=== PATIENT | female | born 1970 | race Caucasian/White ===

== ENCOUNTER 2019-04-10 13:40 | Emergency (ER) | payer OTHER, SELFPAY ==
[2019-04-10 13:49] VITALS: BP 142/78; PULSE 72; RESP 18; TEMP 36.6; O2SAT 100
--- NOTE | 2019-04-10 15:56 | W.ED.GENAD ---
Discharge Plan Disposition Patient Disposition: HOME Condition: Good Discharge Details Chief Complaint: Laceration Clinical Impression: Avulsion of skin Primary Care Provider: Cuca Casarez ED Provider: Flavio Reyes Home Meds and New Rx's Prescriptions: No Action sucralfate [Carafate] 1 gram Tablet 1 g PO PRN PRNRF: 0 lisinopril 5 mg Tablet 5 mg PO DAILY RF: 0 acetaminophen 325 MG tablet 650 mg PO TID PRNRF: 0 ibuprofen 200 MG tablet 600 mg PO Q6H PRN PRNRF: 0 Esomeprazole Magnesium [Nexium 24Hr] 20 MG Capsule.Dr 20 mg PO DAILY RF: 0 ondansetron 4 MG tablet,disintegrating 4 mg PO Q8H PRN (Reason: Nausea / Vomiting) Qty: 8 RF: 0 Discharge Instructions Instructions: Skin Avulsion (ED) Additional Instructions: You have avulsed a significant amount of your skin of your fingertip. Please change your bandages every day. Please put a nonadhesive gauze on the injury site. Please then wrapped this with normal gauze, and then cover it with co-ban dressing. If you notice any discharge, drainage, redness, fever, chills or worsening pain please return immediately. Please take Tylenol and Motrin as needed for pain. If you notice any worsening of your symptoms, or any new symptoms such as vomiting, diarrhea, fever, chills, shortness of breath, chest pain, numbness, weakness, or fainting , please return immediately to the emergency department for reevaluation. Please follow up with your primary care provider as soon as possible for reassessment and reevaluation. As always, it was a pleasure participating in your medical care today. Referrals: Cuca Casarez [Primary Care Provider] - Discharge Data Discharge Date/Time-TO BE ENTERED AT DEPARTURE: 04/10/19 16:12 Medical Decision Making This is a pleasant 48-year-old female who presents for avulsing the distal tip of her left index finger on her nondominant hand. Tetanus is updated in the last 10 years. Exam demonstrates a relatively superficial distal tip avulsion, which does include the distal lateral tip of the nail. The area was blocked with 5 cc of lidocaine without epinephrine. A tourniquet was applied, vigorous irrigation and scrubbing was performed on the fingertip. No evidence of bony involvement. No evidence of tendon disruption. Patient is able to still flex and extend her fingertip well without any difficulty. Multiple layers of Dermabond were applied to the fingertip, tourniquet was removed and excellent hemostasis was achieved. The fingertip was pink with brisk capillary refill upon discharge. The area was bandaged, patient will be scheduled for close follow-up with her PCP for wound reassessment. We discussed dressing changes, the importance of close follow-up, and red flags for which to return. With no bone involvement, or tendon disruption I do not see indication for antibiotic use at this time. I have extensively reviewed the treatment plan and discharge instructions with the patient and their family. I have addressed all patient concerns at this time. The patient and family was made aware of what symptoms to monitor for that would warrant a return to the emergency department. Discussed the plan with the patient and family, they demonstrate verbal understanding and agreement with our assessment and plan at this time. HPI General Date/Time Provider Initiated Documentation: 04/10/19 15:56. HPI Narrative: This is a pleasant 48-year-old female with no significant past medical history whose tetanus was updated in the last 10 years who presents today for evaluation of laceration to her index finger. The distal tip is cut off by a sharp blade while she was in the kitchen.Pressure immediately came for further evaluation. She is right-hand clinic. Aside for the distal laceration and the pain associated with it she denies any other associated numbness tingling she denies any pain moving her finger. She denies any other complaints or modifying factors. She denies any IV or illicit drug use, recent surgeries or pertinent family history. Related Data Home Medications Medication Instructions Recorded Confirmed Esomeprazole Magnesium [Nexium 20 mg PO DAILY 09/17/17 04/10/19 24Hr] acetaminophen 650 mg PO TID PRN 09/17/17 04/10/19 ibuprofen 600 mg PO Q6H PRN PRN 09/17/17 04/10/19 ondansetron 4 mg PO Q8H PRN #8 tabef 09/17/17 04/10/19 lisinopril 5 mg PO DAILY 04/10/19 04/10/19 sucralfate [Carafate] 1 g PO PRN PRN 04/10/19 04/10/19 Previous Rx's Medication Instructions Recorded ondansetron 4 mg PO Q8H PRN #8 tabef 09/17/17 Allergies Allergy/AdvReac Type Severity Reaction Status Date / Time bee venom protein (honey bee) Allergy Severe Anaphylaxsi Unverified 04/10/19 13:53 s Penicillins AdvReac Unknown Unverified 04/10/19 13:53 General Stated Complaint: Laceration JED: 3 Review of Systems Review of Systems All systems reviewed & are unremarkable except as noted in HPI and below PFSH Social History Smoking/Tobacco Use Status: Former Tobacco Use Alcohol Intake: current Alcohol Intake frequency: a few times a month Substance use type: does not use Do you feel safe at home: Yes Do you feel safe in your relationship?: Yes Exam Narrative Exam Narrative: 1.Const: Well-nourished, Well-developed, appearing stated age 2.Eyes: PERRL, no conjunctival injection, and symmetrical lids. 3.ENT: Atraumatic external nose and ears. Moist MM. Neck: Symmetric, trachea midline, No thyromegaly. 4.CVS: +S1/S2, No murmurs or gallops. Peripheral pulses 2+ and equal in all extremities. Brisk capillary refill in all extremities. 5.RESP: Unlabored respiratory effort. Clear to auscultation bilaterally. No wheezes rales or rhonchi 6.GI: Soft, Nontender/Nondistended, No hepatosplenomegaly. No guarding or rebound. 7.MSK: Normocephalic,No cyanosis or clubbing, Normal movement of all extremities. Patient demonstrates an avulsion of the distal tip of the index finger on the left hand. A portion of the nail is also been cut off. There is no evidence of deep penetration or bony presence. No evidence of tendon involvement. The avulsion appears to be the superficial skin and edge of the distal nail bed. Mild active bleeding. Normal flexion and extension of the distal tip. 8.Skin: Warm, Dry. 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 Sensation grossly intact, no focal neurologic deficits. 10.Psych: (AAO) x3. Appropriate mood and affect Course Vital Signs Temperature 36.6 C 04/10/19 13:49 Pulse 72 04/10/19 13:49 Respiratory Rate 18 04/10/19 13:49 Blood Pressure 142/78 H 04/10/19 13:49 Pulse Oximetry 100 04/10/19 13:49 Temperature 36.6 C 04/10/19 13:49 Pulse 72 04/10/19 13:49 Respiratory Rate 18 04/10/19 13:49 Respiratory Effort Non-Labored 04/10/19 13:54 Blood Pressure 142/78 H 04/10/19 13:49 Blood Pressure Position Sitting 04/10/19 13:49 Pulse Oximetry 100 04/10/19 13:49 Oxygen Delivery Method Room Air 04/10/19 13:49 Oxygen Flow Rate 0 04/10/19 13:49 Pain Level 5 04/10/19 13:49
[2019-04-10 16:15] VITALS: BP 142/78; PULSE 72; RESP 18; TEMP 36.6; O2SAT 100
== END 2019-04-10 16:12 | disposition home or self-care (01) ==
PROVIDERS: Emergency Provider Student in an Organized Health Care Education/Training Program; PCP Registered Nurse
DX: S61.311A Laceration without foreign body of left index finger with damage to nail, initial encounter (principal); W26.0XXA Contact with knife, initial encounter
CPT/HCPCS: 12001

== ENCOUNTER 2024-11-10 12:55 | Outpatient (CLI) | payer MEDICAID, SELFPAY ==
--- NOTE | 2024-11-10 12:57 | PDOC.PAIN ---
Date of service: 11/10/24 Time of Service: 13:41 Pain Managment Procedure Note Procedure Note Procedure Note: ?Sacroiliac Joint Steroid Injection ? Location: ? ? Left SI joint ? Pre-procedure Diagnosis: Sacroiliitis, not elsewhere classified - M46.1 ? Post-procedure Diagnosis:? The same as above ? Sedation:? NONE ? Medication: Depo-Medrol 40 mg, bupivacaine 0.5% 1 mL, Omnipaque 0.25 mL per joint ? Estimated blood loss:? less than 2 cc ? Surgeon:? Po Davis MD ? COMMENT: THIS WILL BE BOTH DIAGNOSTIC AND THERAPEUTIC ? Procedure Detail:? The procedure and potential risks were explained to the patient and informed written consent was obtained. The patient was escorted to the procedure room and placed in the prone position. Pillows were utilized for proper positioning and comfort. Time out was performed in the procedure room with nursing staff confirming the patient's identity, procedure to be performed, allergies, and any blood thinning or anti-platelet medications. The patient's lumbosacral area was prepped with ChloraPrep and draped in a sterile fashion. Sterile technique was maintained throughout the procedure.? Sterile gloves were used, a face mask was worn, and new single dose vials of all medications were used with the top being swabbed with alcohol and given time to dry prior to withdrawal of medication. Lidocaine 1% was used to anesthetize the skin. With fluoroscopic guidance, a 22-gauge 3.5 spinal needle was advanced into the posteroinferior aspect of the Left SI joint . Confirmation of intra-articular position of the needle tip was obtained with injection of 0.25cc of Omnipaque 240 contrast which showed appropriate spread within the joint.? Following negative aspiration, 40mg of methylprednisolone mixed with 1 mL of bupivacaine 0.5% was injected.? The needle was gently removed. ?The patient tolerated the procedure well and was transported to the recovery area for observation and discharge instructions.? Permanent images saved and recorded. Plan:? Follow up prn. PAIN PRE PROCEDURE 10 POST PROCEDURE 02/20 COMMENT: 30 % BETTER AFTER INJECTION. Consider facet injections and left L2-3 transforaminal injection and assess for vertebrogenic back pain once everything else has been ruled out and possible basivertebral nerve ablation. Left Hip xray?
[2024-11-10 13:03] VITALS: BP 133/72; PULSE 61; RESP 20; TEMP 36.6; O2SAT 98
[2024-11-10 13:27] VITALS: PULSE 77; O2SAT 97
[2024-11-10 13:31] VITALS: PULSE 77; O2SAT 100
--- NOTE | 2024-11-10 13:41 | DI.RAD_ITS ---
Exam(s) XR PAIN CLINIC SACRIOILIAC 2V EXAM: XR PAIN CLINIC SACRIOILIAC 2V CLINICAL HISTORY: DX: Sacroiliac Dysfunction TECHNIQUE: 2D and realtime digital imaging was performed. Radiologist not present. CONTRAST MATERIAL: None. COMPARISON: No exams were available for comparison FINDINGS: Fluoroscopy was provided for pain management therapy. Therapeutic left sacroiliac joint injection Please refer to procedure report or details. Radiation Exposure Index: Ka,r=7.04 mGy IMPRESSION: As above. RADIATION DOSE DELIVERED:
[2024-11-10] MEDS: methylPREDNISolone ACETATE 80 MG/ML VIAL IJ (13:44)
[2024-11-10] MEDS: Omnipaque 240 MG/ML 50 ML BTL IJ (13:44)
[2024-11-10] MEDS: Bupivacaine 0.5% Pres-Free 10 ML VIAL IJ (13:44)
[2024-11-10] MEDS: Nerve Block Tray 1 EACH MC (13:44)
== END 2024-11-10 12:56 | disposition home or self-care (01) ==
PROVIDERS: PCP Registered Nurse; Visit Provider Anesthesiology Pain Medicine
DX: M46.1 Sacroiliitis, not elsewhere classified (principal)
CPT/HCPCS: 00123; 27096; 72200; J0665; J1010; Q9967

== ENCOUNTER 2024-12-18 15:50 | Outpatient (REF) | payer MEDICAID, SELFPAY ==
[2024-12-19 00:24] LABS: Campylobacter PCR Negative (Negative); Salmonella PCR Negative (Negative); Shiga Toxin PCR Negative (Negative); Shigella/Enteroinvasive Ecoli Negative (Negative)
[2024-12-21 22:29] LABS: Calprotectin <50.0 mcg/g
[2024-12-22 13:53] LABS: Helicobacter pylori Ag, Feces Negative (Negative)
== END 2024-12-18 15:51 | disposition home or self-care (01) ==
LOC: LBN 15:50
PROVIDERS: PCP Registered Nurse; Visit Provider Registered Nurse
DX: K29.70 Gastritis, unspecified, without bleeding (principal); R11.2 Nausea with vomiting, unspecified; R63.4 Abnormal weight loss
CPT/HCPCS: 87338; 87493; 87505; 83993; 87177

== ENCOUNTER 2024-12-22 01:52 | Outpatient (CLI) | payer MEDICAID, SELFPAY ==
[2024-12-22] MEDS: Barium Sulfate 2% W/V-Berry Smoothie 450 ML BTL PO ×2 (14:41→14:42)
[2024-12-22] MEDS: Normal Saline - Diluent 50 ML VIAL IJ (14:42)
[2024-12-22] MEDS: Omnipaque 350 MG/ML 100 ML BTL IJ (14:50)
--- NOTE | 2024-12-22 15:38 | DI.CT_ITS ---
Exam(s) CT ABDOMEN PELVIS W EXAM: CT ABDOMEN PELVIS W CLINICAL HISTORY: Gastritis wo bleeding, K29.70; Nausea w/vomiting, R11.2; Abnl wt loss,R63.4. TECHNIQUE: Imaging Protocol: Axial computed tomography images with coronal and sagittal reformatted images were created and reviewed CONTRAST MATERIAL: Intravenous: Omnipaque-350 100cc Oral: Yes. Oral contrast was also administered for bowel opacification. COMPARISON: No exams were available for comparison FINDINGS: VISUALIZED LUNG BASES: No nodules nor pleural effusions evident. ABDOMEN: There is no ascites. LIVER: There are no focal hepatic lesions evident. No dilated intrahepatic ducts. GALLBLADDER/BILIARY: The gallbladder surgically absent. CBD is not dilated. PANCREAS: No evidence of pancreatic mass nor dilatation of the pancreatic duct. SPLEEN: Spleen is not enlarged. No obvious intrasplenic lesions. Splenic and portal veins are paten t. ADRENALS: There are no significant adrenal masses. KIDNEYS:No cysts evident. No solid renal masses. No calculi nor hydronephrosis.. ABDOMINAL AORTA: Abdominal aorta is not enlarged. LYMPH NODES:There is no retroperitoneal nor paraaortic adenopathy. ABDOMINAL WALL: No evidence of significant anterior abdominal wall nor inguinal hernia. GI: The oral contrast has not yet reached the colon by the time of image acquisition. This may be re lated to the fact that there is abundant fecal material throughout the colon consistent with probable constipation. There is no colitis pattern. No diverticulosis evident. Small bowel loop diameters are upper normal. PELVIS: GI: The cecum is low-lying sitting on top of the urinary bladder making visualization of the appendix difficult. However, there is no evidence of obvious appendicitis.There is no evidence of significan t sigmoid diverticular disease. LYMPH NODES: There is no intrapelvic nor inguinal adenopathy. REPRODUCTIVE: The uterus is surgically absent. There are no abnormal adnexal masses nor free fluid i n the pelvis. URINARY BLADDER: No calculi nor obvious masses evident OSSEOUS: No fractures and no significant osseous lesions. Chronic disc space narrowing at L1-2 and L2-3 levels and milder disc space narrowing at L3-4. L4-5 a nd L5-S1 levels exhibit normal disc height. IMPRESSION: 1. There is abundant fecal material noted throughout the length of the colon consistent with probable constipation. There is no significant diverticular disease in the colon. No colitis pattern. 2. Prior cholecystectomy. The biliary tree is not significantly dilated. 3. Appendix is not seen and possibly surgically absent. There is no evidence of appendicitis, divert iculitis, nor other inflammatory process in the abdomen and pelvis. 4. Previous hysterectomy. No abnormal adnexal masses nor free fluid. RADIATION DOSE DELIVERED: 336.88mGy.cm Total DLP DATA REPOSITORY: All CT scans at this facility are submitted to the National Radiology Data Registry (NRDR) Dose Index Registry (DIR) with the [employer] (A[employer]). RADIATION OPTIMIZATION: All CT scans at this facility use at least one of these dose optimization te chniques: automated exposure control; mA and/or kV adjustment per patient size (includes targeted exa ms where dose is matched to clinical indication); or iterative reconstruction.
== END 2024-12-22 02:12 ==
PROVIDERS: PCP Registered Nurse; Visit Provider Registered Nurse
DX: K29.70 Gastritis, unspecified, without bleeding (principal); R11.2 Nausea with vomiting, unspecified; R63.4 Abnormal weight loss
CPT/HCPCS: 74177; J3490

== ENCOUNTER 2025-01-10 19:10 | Emergency (ER) | payer MEDICAID, SELFPAY ==
[2025-01-10 19:13] VITALS: BP 120/79; PULSE 79; RESP 20; TEMP 36.6; O2SAT 96
[2025-01-10 19:17] VITALS: BP 120/79; PULSE 79; RESP 20; TEMP 36.6; O2SAT 96
--- NOTE | 2025-01-10 19:32 | ED.GENADUL_ITS ---
Discharge Plan Disposition Patient Disposition: Home Condition: Stable Discharge Details Clinical Impression: Migraine Primary Care Provider: Cuca Casarez ED Provider: Mikel Leong Home Meds and New Rx's Prescriptions: New sumatriptan succinate 50 mg tablet See Rx Instructions .ROUTE .COMPLEX Qty: 30 0RF Rx Instructions: take 1 tab at onset of headache; if no relief may repeat 1 tab after at least 2 hrs; max = 4 tabs/24 hr ondansetron 4 mg tablet,disintegrating 4 mg PO Q8H PRN (Reason: nausea and vomiting) Qty: 30 0RF Continued hydrocortisone acetate [Anusol-HC] 25 mg suppository 25 mg [place] TID diclofenac sodium 1 % gel 2 g topical QID Rx Instructions: apply to single elbow, wrist or hand; for hand includes palm/fingers/back of hand epinephrine 0.3 mg/0.3 mL auto-injector 0.3 mg IM ONCE PRN Rx Instructions: as a single dose; may repeat once lidocaine 5 % adhesive patch,medicated 2 patch topical DAILY Rx Instructions: leave on most painful area for up to 12 hrs estradiol [Vagifem] 10 mcg tablet 10 mcg vaginal DAILY zolpidem 5 mg tablet 5 mg PO QHS PRN Rx Instructions: may repeat once if no response in 30-60 minutes sucralfate [Carafate] 1 gram Tablet 1 g PO PRN PRN lisinopril 5 mg Tablet 5 mg PO DAILY acetaminophen 325 MG tablet 650 mg PO TID PRN ibuprofen 200 MG tablet 600 mg PO Q6H PRN PRN Esomeprazole Magnesium [Nexium 24Hr] 20 MG Capsule.Dr 20 mg PO DAILY ondansetron 4 MG tablet,disintegrating 4 mg PO Q8H PRN (Reason: Nausea / Vomiting) Qty: 8 0RF Discharge Instructions Additional Instructions: Follow-up with your primary care provider especially if not improving within a week. He can take 1000 mg of acetaminophen and 600 mg of ibuprofen every 6 hours as needed. If you feel more ill, have new symptoms such as high fevers or persistent vomiting return to the emergency department for reevaluation HPI General Mode of arrival: ambulatory . Date/Time Provider Initiated Documentation: 01/10/25 19:11 . Limitations to Documentation: no limitations . Information obtained by: patient . History of Present Illness 54 year old F presents to the emergency department with the chief complaint of headache, described as moderate, Patient started experiencing this day(s) (11) and it has been constant. No relieving factors improve symptom(s), No exacerbating factors reported . Patient notes denies chest pain, fever/chills and shortness of breath. Related Data Home Medications ?Medication ?Instructions ?Recorded ?Confirmed Esomeprazole Magnesium [Nexium 20 mg PO DAILY 09/17/17 01/10/25 24Hr] acetaminophen 325 mg tablet 650 mg PO TID PRN 09/17/17 01/10/25 ibuprofen 200 mg tablet 600 mg PO Q6H PRN PRN 09/17/17 01/10/25 ondansetron 4 mg disintegrating 4 mg PO Q8H PRN Nausea / Vomiting 09/17/17 01/10/25 tablet ##8 lisinopril 5 mg tablet 5 mg PO DAILY 04/10/19 01/10/25 sucralfate 1 gram tablet (Carafate) 1 g PO PRN PRN 04/10/19 01/10/25 diclofenac sodium 1 % topical gel 2 g topical QID 10/23/24 01/10/25 epinephrine 0.3 mg/0.3 mL 0.3 mg IM ONCE PRN 10/23/24 01/10/25 injection, auto-injector estradiol 10 mcg vaginal tablet 10 mcg vaginal DAILY 10/23/24 01/10/25 (Vagifem) hydrocortisone acetate 25 mg 25 mg [place] TID 10/23/24 01/10/25 rectal suppository (Anusol-HC) lidocaine 5 % topical patch 2 patch topical DAILY 10/23/24 01/10/25 zolpidem 5 mg tablet 5 mg PO QHS PRN 10/23/24 01/10/25 ondansetron 4 mg disintegrating 4 mg PO Q8H PRN nausea and 01/10/25 tablet vomiting #30 tabs sumatriptan succinate 50 mg tablet See Rx Instructions PO .COMPLEX 01/10/25 #30 tabs Previous Rx's ?Medication ?Instructions ?Recorded ondansetron 4 mg disintegrating 4 mg PO Q8H PRN Nausea / Vomiting 09/17/17 tablet ##8 ondansetron 4 mg disintegrating 4 mg PO Q8H PRN nausea and 01/10/25 tablet vomiting #30 tabs sumatriptan succinate 50 mg tablet See Rx Instructions PO .COMPLEX 01/10/25 #30 tabs Allergies Allergy/AdvReac Type Severity Reaction Status Date / Time bee venom protein (honey bee) Allergy Severe Anaphylaxsi Unverified 01/10/25 19:26 s trazodone Allergy Severe Anaphylaxis Unverified 01/10/25 19:26 Penicillins AdvReac Unknown Anaphylaxis Unverified 01/10/25 19:26 General Stated Complaint: Headache JED: 3 Review of Systems All systems reviewed & are unremarkable except as noted in HPI and below Constitutional Constitutional: Denies chills, Denies fever(s), Reports headache(s) and Denies weakness Eyes Eyes: Denies loss of vision ENT Ears, Nose, Mouth, and Throat: Reports headache(s) Cardiovascular Cardiovascular: Denies chest pain and Denies dyspnea Respiratory Respiratory: Denies cough and Denies dyspnea Gastrointestinal Gastrointestinal: Denies abdominal pain, Denies nausea and Denies vomiting Neurologic Neurologic: Reports headache(s), Denies loss of vision and Denies weakness Exam Const General: no acute distress Orientation: alert HENMA Head: normal to inspection Ears: external ears normal and TM's normal bilaterally General nose exam: external nose normal Mouth: moist mucous membranes Eyes General: appearance normal, both eyes and all related structures Neck Neck: normal visual inspection, full ROM, no lymphadenopathy and no meningeal signs Resp Effort & Inspection: normal respiratory effort and able to speak in complete sentences Cardio Rate: regular rate Skin General skin exam: no rashes or lesions noted Neuro General: patient alert and patient oriented x3 Extrem General: normal to inspection Psych Mental Status: mental status grossly normal Course Vital Signs Vital signs: Vital Signs Temperature 36.6 C 01/10/25 19:13 Pulse 79 01/10/25 19:13 Respiratory Rate 20 01/10/25 19:13 Blood Pressure 120/79 01/10/25 19:13 Pulse Oximetry 96 01/10/25 19:13 Temperature 36.6 C 01/10/25 19:17 Pulse 79 01/10/25 19:17 Respiratory Rate 20 01/10/25 19:17 Blood Pressure 120/79 01/10/25 19:17 Blood Pressure Position Sitting 01/10/25 19:17 Pulse Oximetry 96 01/10/25 19:17 Oxygen Delivery Method Room Air 01/10/25 19:17 Oxygen Flow Rate 0 01/10/25 19:17 Pain Level 10 01/10/25 19:26 Medical Decision Making 34-year-old female comes in with 11 days of superior head pain. Denies any falls or trauma. Denies any fevers or neck stiffness. Has had nausea without vomiting. She was at [facility] and had a CT and CTA done earlier today which was negative, also had labs which showed a reassuring sed rate and CRP. She has no temporal artery tenderness, clear speech, no focal neurological deficits. There is no facial swelling, pupils are equal and reactive to light. I suspect migraine given she just had a CT and CTA that was negative and I do not feel repeat imaging at this current time is indicated. 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 Will treat her symptoms with droperidol, magnesium and sumatriptan and reassess. She was given Compazine and steroids at [facility] per the patient with minimal change in her symptoms. Patient feels significantly better and has no pain and still has reassuring exam. Suspect migraine, she will follow-up with her PCP if not feeling and return precautions given Differential Diagnosis Differential Diagnosis: Tension headache, status migrainosus Quality:SDOH Health Related Social Needs: No Data to Display PFSH All Active Problems (Updated 01/10/25 @ 20:45 by Mikel Leong MD) Migraine (Chronic) Lumbar spondylosis (Acute) Vertebrogenic low back pain (Acute) Tear of gluteus minimus tendon (Acute) Mechanical low back pain (Acute) Sacroiliac joint dysfunction of left side (Acute) Medical History (Updated 01/10/25 @ 20:45 by Mikel Leong MD) Screening mammogram for breast cancer Vaginal wall cyst excision 03/01/23 Spinal stenosis, lumbar region with neurogenic claudication Post-menopausal atrophic vaginitis Menopause present Menopausal symptom Left hip pain Labral tear of left hip joint Itchy eyes Iron deficiency anemia Hypertensive disorder Insomnia Hypermobility of joint GERD (gastroesophageal reflux disease) Fibromyalgia Chronic low back pain with bilateral sciatica Anemia Acute stress disorder Surgical History S/P anal fissurectomy Hx of cholecystectomy H/O: hysterectomy Family History Mother Cervical cancer Sister Cervical cancer Diabetes Maternal Grandmother Heart disease Diabetes Maternal Grandfather Heart disease Heart attack Social History Smoking/Tobacco Use Status: Former Tobacco Use Smoking risk assessment performed?: Yes Alcohol Intake: current Alcohol Intake frequency: a few times a month Substance use type: does not use Do you feel safe at home: Yes Do you feel safe in your relationship?: Yes PAWSS Have you Been Recently Intoxicated or Drunk Within the Last 30 days?: No Have you Ever Experienced Previous Episodes of Alcohol Withdrawal?: No Have you ever Experienced Withdrawal Seizures?: No Have you ever Experienced Delirium Tremens(DT)s?: No Have you ever undergone Alcohol Rehabilitation Treatment (i.e, inpt ot outpatient treatment programs)?: No Have you ever Experienced Blackouts?: No Have you ever Combined Alcohol with other Downers within the last 90 days?: No Have you ever Combined Alcohol with any other Substance of Abuse during the last 90 days?: No Positive Blood Alcohol level on Presentation? [PCS.BAL]: No Evidence of Increased Autonomic Activity (i.e. HR>120, tremor, sweating, agitation, nausea)?: No Result: 0
[2025-01-10] MEDS: MAGNESIUM SULFATE 1 GM/100 ML BAG IV_INF (19:49)
[2025-01-10] MEDS: Normal Saline 1,000 ML 1000 ML IV (19:55)
[2025-01-10] MEDS: SUMAtriptan 6 MG/0.5 ML VIAL SC (19:56)
[2025-01-10] MEDS: Droperidol 5 MG/2 ML VIAL 2.5 MG IVP (19:57)
[2025-01-10] MEDS: Ondansetron O.D.T. 4 MG TABEF, 3 TABS/BTL PO (20:54)
[2025-01-10] MEDS: Normal Saline Flush 10 ML SYR IVP (20:55)
== END 2025-01-10 21:03 | disposition home or self-care (01) ==
PROVIDERS: Emergency Provider Emergency Medicine; PCP Registered Nurse
DX: G43.909 Migraine, unspecified, not intractable, without status migrainosus (principal); I10 Essential (primary) hypertension; Z87.891 Personal history of nicotine dependence
CPT/HCPCS: 96365; 96372; 96375; 99284; J1790; J3030; J3475

== ENCOUNTER 2025-01-14 13:20 | Emergency (ER) | payer MEDICAID, SELFPAY ==
[2025-01-14 13:46] VITALS: BP 159/93; PULSE 79; RESP 18; TEMP 36.1; O2SAT 99
--- NOTE | 2025-01-14 13:55 | NUR.NOTE ---
Nursing Note: trg delay d/t pateint checking in to ED through access but needing more time to speak with provider on the phone and was not initially ready to be checked in to department
--- NOTE | 2025-01-14 14:17 | W.ED.GENAD ---
Discharge Plan Disposition Patient Disposition: Home Condition: Stable Discharge Details Clinical Impression: Migraine Primary Care Provider: Cuca Casarez ED Provider: Mikel Leong Home Meds and New Rx's Prescriptions: Continued hydrocortisone acetate [Anusol-HC] 25 mg suppository 25 mg RI TID epinephrine 0.3 mg/0.3 mL auto-injector 0.3 mg IM ONCE PRN Rx Instructions: as a single dose; may repeat once lidocaine 5 % adhesive patch,medicated 2 patch topical DAILY Rx Instructions: leave on most painful area for up to 12 hrs estradiol [Vagifem] 10 mcg tablet 10 mcg vaginal DAILY zolpidem 5 mg tablet 5 mg PO QHS PRN Rx Instructions: may repeat once if no response in 30-60 minutes sucralfate [Carafate] 1 gram Tablet 1 g PO PRN PRN acetaminophen 325 MG tablet 650 mg PO TID PRN ibuprofen 200 MG tablet 600 mg PO Q6H PRN PRN Esomeprazole Magnesium [Nexium 24Hr] 20 MG Capsule.Dr 20 mg PO DAILY ondansetron 4 MG tablet,disintegrating 4 mg PO Q8H PRN (Reason: Nausea / Vomiting) Qty: 8 0RF sumatriptan succinate 50 mg tablet See Rx Instructions .ROUTE .COMPLEX Qty: 30 0RF Rx Instructions: take 1 tab at onset of headache; if no relief may repeat 1 tab after at least 2 hrs; max = 4 tabs/24 hr ondansetron 4 mg tablet,disintegrating 4 mg PO Q8H PRN (Reason: nausea and vomiting) Qty: 30 0RF gabapentin 300 mg capsule 300 mg PO TID PRN Patient Comments: TAKE ONE CAPSULE BY MOUTH THREE TIMES A DAY NEEDED FOR HEADACHE famotidine 20 mg tablet 20 mg PO BID Patient Comments: TAKE ONE TABLET BY MOUTH TWICE A DAY Discharge Instructions Additional Instructions: You are having headaches and migraines that are now controlled with oral medications the IV medications are was given in the emergency department to control the pain. Obesity want to have IV treatment he can always return to the emergency department to have these given. Follow-up with your primary care provider Discharge Data Discharge Date/Time-TO BE ENTERED AT DEPARTURE: 01/14/25 15:04 HPI General Mode of arrival: ambulatory. Date/Time Provider Initiated Documentation: 01/14/25 13:24. Limitations to Documentation: no limitations. Information obtained by: patient and family. History of Present Illness 54 year old F presents to the emergency department with the chief complaint of headache, described as severe, with intensity rated at 9. Quality is described as sharp, and is localized to the head. Patient reports no radiation. and it has been constant. No relieving factors improve symptom(s), No exacerbating factors reported . Patient notes denies chest pain, fever/chills and shortness of breath. Patient did receive the following treatments prior to arrival, none Related Data Home Medications ?Medication ?Instructions ?Recorded ?Confirmed Esomeprazole Magnesium [Nexium 20 mg PO DAILY 09/17/17 01/14/25 24Hr] acetaminophen 325 mg tablet 650 mg PO TID PRN 09/17/17 01/14/25 ibuprofen 200 mg tablet 600 mg PO Q6H PRN PRN 09/17/17 01/14/25 ondansetron 4 mg disintegrating 4 mg PO Q8H PRN Nausea / Vomiting 09/17/17 01/14/25 tablet ##8 sucralfate 1 gram tablet (Carafate) 1 g PO PRN PRN 04/10/19 01/14/25 epinephrine 0.3 mg/0.3 mL 0.3 mg IM ONCE PRN 10/23/24 01/14/25 injection, auto-injector estradiol 10 mcg vaginal tablet 10 mcg vaginal DAILY 10/23/24 01/14/25 (Vagifem) hydrocortisone acetate 25 mg 25 mg RI TID 10/23/24 01/14/25 rectal suppository (Anusol-HC) lidocaine 5 % topical patch 2 patch topical DAILY 10/23/24 01/14/25 zolpidem 5 mg tablet 5 mg PO QHS PRN 10/23/24 01/14/25 ondansetron 4 mg disintegrating 4 mg PO Q8H PRN nausea and 01/10/25 01/14/25 tablet vomiting #30 tabs sumatriptan succinate 50 mg tablet See Rx Instructions PO .COMPLEX 01/10/25 01/14/25 #30 tabs famotidine 20 mg tablet 20 mg PO BID 01/14/25 01/14/25 gabapentin 300 mg capsule 300 mg PO TID PRN 01/14/25 01/14/25 Previous Rx's ?Medication ?Instructions ?Recorded ondansetron 4 mg disintegrating 4 mg PO Q8H PRN Nausea / Vomiting 09/17/17 tablet ##8 ondansetron 4 mg disintegrating 4 mg PO Q8H PRN nausea and 01/10/25 tablet vomiting #30 tabs sumatriptan succinate 50 mg tablet See Rx Instructions PO .COMPLEX 01/10/25 #30 tabs Allergies Allergy/AdvReac Type Severity Reaction Status Date / Time bee venom protein (honey bee) Allergy Severe Anaphylaxsi Unverified 01/14/25 13:50 s trazodone Allergy Severe Anaphylaxis Unverified 01/14/25 13:50 Penicillins AdvReac Unknown Anaphylaxis Unverified 01/14/25 13:50 General Stated Complaint: Headache JED: 3 Review of Systems All systems reviewed & are unremarkable except as noted in HPI and below Constitutional Constitutional: Denies chills, Denies fever(s) and Reports headache(s) Eyes Eyes: Denies loss of vision ENT Ears, Nose, Mouth, and Throat: Denies change in voice and Reports headache(s) Cardiovascular Cardiovascular: Denies chest pain and Denies dyspnea Respiratory Respiratory: Denies cough and Denies dyspnea Gastrointestinal Gastrointestinal: Denies abdominal pain, Denies nausea and Denies vomiting Musculoskeletal Musculoskeletal: Denies joint swelling Neurologic Neurologic: Reports headache(s) and Denies loss of vision Exam Const General: no acute distress Orientation: alert [facility] Head: normal to inspection Ears: external ears normal General nose exam: external nose normal Mouth: moist mucous membranes Eyes General: appearance normal, both eyes and all related structures Neck Neck: normal visual inspection Resp Effort & Inspection: normal respiratory effort and able to speak in complete sentences Cardio Rate: regular rate Skin General skin exam: no rashes or lesions noted Neuro General: patient alert and patient oriented x3 Extrem General: normal to inspection Psych Mental Status: mental status grossly normal Course Vital Signs Vital signs: Vital Signs Temperature 36.1 C L 01/14/25 13:46 Pulse 79 01/14/25 13:46 Respiratory Rate 18 01/14/25 13:46 Blood Pressure 159/93 H 01/14/25 13:46 Pulse Oximetry 99 01/14/25 13:46 Temperature 36.1 C L 01/14/25 13:46 Temperature Source Tympanic 01/14/25 13:46 Pulse 79 01/14/25 13:46 Respiratory Rate 18 01/14/25 13:46 Blood Pressure 159/93 H 01/14/25 13:46 Pulse Oximetry 99 01/14/25 13:46 Oxygen Delivery Method Room Air 01/14/25 13:46 Oxygen Flow Rate 0 01/14/25 13:46 Pain Level 8 01/14/25 13:46 Medical Decision Making 54-year-old female whose had headaches for the past 2 weeks and has been seen here once in multiple times at [facility] and has had 2 [address] and 2 CT angios done with country last being on January 10 that were negative with unremarkable lab workups, comes in with continued head pain. She denies any fevers. She has a hat over her eyes. She is argumentative and declining to have any meds done and demands a neurology evaluation. I advised that need to do a physical exam and that I would recommend doing labs and medications first. She would not let me do a thorough neurological exam was very agitated. I did offer to do labs and meds. She denies any fevers or neck stiffness so I doubt [employer] infection and given to negative CT angios I doubt subarachnoid hemorrhage. It is time where MRI is available so we will see if they are available to potentially do an MRI and MRV. Patient was absolutely refusing to let any testing be done, she says that she did not want any lab work and that she only wants to have a neurology consult. Advised that we could do a neurology consult but that we would have to do labs and imaging before this, and that it would be a teleneurology consult which can take some time to obtain a baseline acute stroke. After hearing this if you do not want to have a teleneurology consult on the end and request to be discharged. Given she has had multiple workups for similar do not feel she needs to be signed out AMA. She was instructed to follow-up with her PCP as soon as possible and return precautions given Quality:SDOH Health Related Social Needs: No Data to Display PFSH All Active Problems (Updated 01/14/25 @ 14:35 by Mikel Leong MD) Migraine (Chronic) Lumbar spondylosis (Acute) Vertebrogenic low back pain (Acute) Tear of gluteus minimus tendon (Acute) Mechanical low back pain (Acute) Sacroiliac joint dysfunction of left side (Acute) Medical History (Updated 01/14/25 @ 14:35 by Mikel Leong MD) Screening mammogram for breast cancer Vaginal wall cyst excision 03/01/23 Spinal stenosis, lumbar region with neurogenic claudication Post-menopausal atrophic vaginitis Menopause present Menopausal symptom Left hip pain Labral tear of left hip joint Itchy eyes Iron deficiency anemia Hypertensive disorder Insomnia Hypermobility of joint GERD (gastroesophageal reflux disease) Fibromyalgia Chronic low back pain with bilateral sciatica Anemia Acute stress disorder Surgical History S/P anal fissurectomy Hx of cholecystectomy H/O: hysterectomy Family History Mother Cervical cancer Sister Cervical cancer Diabetes Maternal Grandmother Heart disease Diabetes Maternal Grandfather Heart disease Heart attack Social History Smoking/Tobacco Use Status: Former Tobacco Use Smoking risk assessment performed?: Yes Alcohol Intake: current Alcohol Intake frequency: a few times a month Substance use type: does not use Do you feel safe at home: Yes Do you feel safe in your relationship?: Yes
[2025-01-14] MEDS: Lidocaine/Prilocaine Cream 5 GM TUBE (14:42)
== END 2025-01-14 15:04 | disposition home or self-care (01) ==
PROVIDERS: Emergency Provider Emergency Medicine; PCP Registered Nurse
DX: G43.909 Migraine, unspecified, not intractable, without status migrainosus (principal)
CPT/HCPCS: 80053; 85652; 99282; 83735; 85025; 86140; 99283